=== PATIENT | male | born 1980 | race Caucasian/White ===

== ENCOUNTER 2016-07-09 17:24 | Emergency (ER) | payer OTHER ==
[2016-07-09 18:29] VITALS: BP 134/83
[2016-07-09] MEDS ORDERED: Lidocaine 1% INJ* 10 MG/ML 30 ML SDV INJ ONE (19:07)
[2016-07-09] MEDS ORDERED: Lidocaine 1%* 5 ML VIAL ONE (19:11)
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
== END 2016-07-09 19:43 | disposition home or self-care (01) ==
LOC: UCCORT 17:24
DX: S51.812A Laceration without foreign body of left forearm, initial encounter (principal); W45.8XXA Other foreign body or object entering through skin, initial encounter; Y93.9 Activity, unspecified; Y92.9 Unspecified place or not applicable; F17.210 Nicotine dependence, cigarettes, uncomplicated
CPT/HCPCS: 12002; 99211; G0463; J2001

== ENCOUNTER 2023-02-04 05:56 | Inpatient (IN) ==
[~2023-02-04 05:56] MED LIST: Haloperidol 5 mg/ml SDV IV/IM 5 MG/ML AMP IV SLOW PU PRN; Lidocaine 4 MG/ML IV PREMIX 200 MG/50 ML BAG IV SCH; Naloxone 0.4 mg VIAL 0.4 mg/ml 1 ml VIAL IV PRN
[2023-02-04] MEDS ORDERED: Scopolamine 1 mg/72hr PATCH TRANSDERM ONE (06:00)
[2023-02-04] MEDS ORDERED: Lactated Ringers 1000 ml BAG 1,000 ML IV SCH (06:00)
[2023-02-04] MEDS ORDERED: Buffered Lidocaine 1% SYRIN 1 ml INTRADERM ONE (06:00)
[2023-02-04] MEDS ORDERED: Scopolamine 1 mg/72hr PATCH ONE (06:31)
[2023-02-04] MEDS ORDERED: Ondansetron 4 mg VIAL 2 MG/ML 2 ml VIAL IV PRN ×2 (06:41→12:31)
[2023-02-04] MEDS ORDERED: Metoclopramide 5 MG/ML VIAL (10 mg) IV PRN (06:41)
[2023-02-04] MEDS ORDERED: Metoclopramide 5 MG/ML VIAL (10 mg) ONE (06:44)
[2023-02-04] MEDS ORDERED: Ondansetron 4 mg VIAL 2 MG/ML 2 ml VIAL ONE ×2 (06:44→07:05)
[2023-02-04] MEDS ORDERED: Rocuronium 50 mg VIAL 10 mg/ml 5 ml VIAL (50 mg) ONE (07:03)
[2023-02-04] MEDS ORDERED: Midazolam 2 mg/2 ml VIAL 1 mg/ml 2 ml VIAL (2 mg) ONE ×4 (07:03→13:09)
[2023-02-04] MEDS ORDERED: fentaNYL 250 mcg/5 ml 50 MCG/ML 5 ml VIAL (250 MCG) ONE (07:03)
[2023-02-04] MEDS ORDERED: Sterile Water for Inj 10 ML ONE (07:05)
[2023-02-04] MEDS ORDERED: Dexamethasone IV 4 MG/ML VIAL 1 ml VIAL ONE (07:05)
[2023-02-04] MEDS ORDERED: Sterile Water for Inj 20 ML ONE (07:05)
[2023-02-04 07:06] LABS: Rapid COVID-19 Molecular Undetected (Undetected)
[2023-02-04] MEDS ORDERED: Phenylephrine 40 mcg/mL 10mL (400mcg) SYRINGE ONE (07:09)
[2023-02-04] MEDS ORDERED: Phenylephrine IV 10 MG/ML 1 ml VIAL ONE (07:09)
[2023-02-04] MEDS ORDERED: Desflurane 240 ML INH ONE (07:09)
[2023-02-04] MEDS ORDERED: Sevoflurane BOTTLE ONE (07:09)
[2023-02-04] MEDS ORDERED: Lidocaine 2% PF 5 ML VIAL ONE (07:09)
[2023-02-04] MEDS ORDERED: Lidocaine 1% w EPI 1:200,000 SDV 30 ML VIAL ONE (07:14)
[2023-02-04] MEDS ORDERED: Bupivacaine 0.5% SDV PF 30ML VIAL ONE (07:14)
[2023-02-04] MEDS ORDERED: Ertapenem 1 GM in NS 0.9% 50 ML IVPB ONE (07:45)
[2023-02-04] MEDS ORDERED: Artificial Tear OPHTH.OINT 3.5 GM ONE (08:10)
[2023-02-04] MEDS ORDERED: Propofol 10 MG/ML 20 ML BTL ONE ×3 (08:24→08:46)
[2023-02-04] MEDS ORDERED: HYDROmorphone 0.5 MG/0.5 ML SYRINGE ONE ×2 (10:39→11:33)
[2023-02-04] MEDS ORDERED: fentaNYL 100 mcg/2 ml 50 MCG/ML VIAL ONE ×3 (11:40→13:30)
[2023-02-04] MEDS ORDERED: Thiamine 100 MG/ML 2 ml VIAL (200 mg) IM ONE ×2 (12:24→14:29)
[2023-02-04] MEDS ORDERED: Acetaminophen IV 1 GM/100ML 1,000 MG/100 ML BAG IV SCH (12:30)
[2023-02-04] MEDS ORDERED: HYDROmorphone 0.5 MG/0.5 ML SYRINGE IV SLOW PU PRN (12:30)
[2023-02-04] MEDS: fentaNYL 100 mcg/2 ml 50 MCG/ML VIAL IV PRN ×8 (12:49→14:09)
[2023-02-04] MEDS ORDERED: LORazepam 2 mg VIAL 1 ml IV PUSH SCH (13:00)
[2023-02-04] MEDS ORDERED: Midazolam 2 mg/2 ml VIAL 1 mg/ml 2 ml VIAL (2 mg) IV SLOW PU ONE (13:39)
[2023-02-04] MEDS ORDERED: LORazepam 2 mg VIAL 1 ml ONE (14:39)
[2023-02-04] MEDS ORDERED: HYDROmorphone 1 MG/1 ML SYRINGE ONE (14:52)
[2023-02-04] MEDS ORDERED: Multivitamins/Minerals TAB PO SCH (15:00)
[2023-02-04] MEDS: HYDROmorphone 1 MG/1 ML SYRINGE IV SLOW PU PRN (18:19)
[2023-02-04] MEDS ORDERED: LORazepam 2 mg VIAL 1 ml IV PUSH PRN (19:14)
[2023-02-04] MEDS ORDERED: LORazepam 2 mg VIAL 1 ml IV PUSH ONE (20:00)
[2023-02-04 22:19] LABS: ABS Lymphocytes 1.6 10^3/uL (1.0-4.8); ABS Monocytes 1.3 10^3/uL (0.0-1.1); ABS Neutrophils 11.2 10^3/uL (1.5-7.6); Eosinophil % 0.1 %; Hematocrit 44.8 % (38-53); Lymphocyte % 11.2 %; Mean Corpuscular Hemoglobin 30.5 pg (27-33); Mean Corpuscular Hgb Conc 33.4 g/dL (31-36); Mean Corpuscular Volume 91.4 fL (80-97); Mean Platelet Volume 9.3 fL (7.5-11.2); Platelet Count 106 10^3/uL (150-450); Red Cell Distribution Width 13.2 % (12-17); White Blood Count 14.1 10^3/uL (3.6-10.2)
[2023-02-04] MEDS: HYDROmorphone 0.5 MG/0.5 ML SYRINGE IV SLOW PU PRN (22:29)
[2023-02-04 22:31] LABS: Calcium 8.5 mg/dL (8.6-10.3); Creatinine, Serum 0.9 mg/dL (0.67-1.17); eGFR CKD-EPI 109.4 (>60)
[2023-02-05] MEDS: HYDROmorphone 0.5 MG/0.5 ML SYRINGE IV SLOW PU PRN ×2 (02:20→08:24)
[2023-02-05 06:15] LABS: ABS Basophils 0.1 10^3/uL (0.0-0.1); ABS Eosinophils 0.1 10^3/uL (0.0-0.5); ABS Lymphocytes 2.5 10^3/uL (1.0-4.8); ABS Monocytes 1.3 10^3/uL (0.0-1.1); ABS Neutrophils 6.8 10^3/uL (1.5-7.6); ABS Nucleated RBC 0.01 10^3/ul; Eosinophil % 0.7 %; Hematocrit 40.9 % (38-53); Hemoglobin 13.9 g/dL (13.2-16.3); Lymphocyte % 23.3 %; Mean Corpuscular Hemoglobin 30.7 pg (27-33); Mean Corpuscular Hgb Conc 34.1 g/dL (31-36); Mean Corpuscular Volume 90.2 fL (80-97); Mean Platelet Volume 8.4 fL (7.5-11.2); Nucleated Red Blood Cells % 0.1 %/100WBC (0.0-0.8); Platelet Count 186 10^3/uL (150-450); Red Blood Count 4.53 10^6/uL (4.06-5.63); White Blood Count 10.8 10^3/uL (3.6-10.2)
[2023-02-05] MEDS: HYDROmorphone 1 MG/1 ML SYRINGE IV SLOW PU PRN (06:17)
[2023-02-05 06:36] LABS: Calcium 8.6 mg/dL (8.6-10.3); Creatinine, Serum 0.86 mg/dL (0.67-1.17); Potassium 3.6 mmol/L (3.5-5.0); eGFR CKD-EPI 110.9 (>60)
[2023-02-05] MEDS: Multivitamins/Minerals TAB PO SCH (08:24)
[2023-02-06] MEDS ORDERED: Senna TAB 8.6 mg TAB PO ONE (01:23)
[2023-02-06] MEDS ORDERED: Magnesium Hydroxide LIQ 30 ML UDC PO ONE (01:23)
[2023-02-06] MEDS ORDERED: Metoclopramide 5 MG/ML VIAL (10 mg) IV PRN (02:10)
[2023-02-06] MEDS ORDERED: Ondansetron 4 mg VIAL 2 MG/ML 2 ml VIAL IV PRN (04:55)
[2023-02-06] MEDS: Multivitamins/Minerals TAB PO SCH (08:51)
[2023-02-06 14:01] VITALS: BP 107/70
== END 2023-02-06 14:05 | disposition home or self-care (01) | DRG 221 ==
LOC: AA 05:56 → SSU 12:23
PROVIDERS: ADMIT Surgery; ATTEND Surgery